=== PATIENT | female | born 1990 | race Caucasian/White ===

== ENCOUNTER 2017-05-18 12:15 | Emergency (ER) | payer BC ==
[~2017-05-18] VITALS: Ht 175.3 cm; Wt 67.7 kg
[~2017-05-18 12:15] MED LIST: ENDOCET 5-3251 EACH PO; IBUPROFEN800 MG PO; PRENATAL TABLE1 EAC3 PO
[2017-05-18 15:45] VITALS: BP 92/62
== END 2017-05-18 15:47 | disposition home or self-care (01) ==
LOC: EME 12:15
DX: G43.909 Migraine, unspecified, not intractable, without status migrainosus (principal); R20.0 Anesthesia of skin; H53.8 Other visual disturbances
CPT/HCPCS: 70450; 84702; 99281; 99284; J2270; J2765